=== PATIENT | female | born 1975 | race Hispanic/Latino ===

== ENCOUNTER 2018-01-06 11:48 | Outpatient (CLI) | payer OTHER, SELFPAY ==
--- NOTE | 2018-01-13 11:07 | MMO ---
BILATERAL DIGITAL SCREENING MAMMOGRAMS: Date: 01/06/18 This patient's mammogram was interpreted with the assistance of computer-aided detection. Comparison made with exam dated 12/18/16. FINDINGS: The breast tissue is heterogeneously dense, which may reduce the sensitivity of mammography. No suspi cious masses, calcifications, or architectural distortion are seen. IMPRESSION: BIRADS 1: Negative Return to annual mammographic screening. POS: [facility]
== END 2018-01-06 11:49 | disposition home or self-care (01) ==
LOC: SCSMAMMO 11:48
PROVIDERS: ATTEND Physician Assistant
DX: Z12.31 Encounter for screening mammogram for malignant neoplasm of breast (principal)
CPT/HCPCS: 77067